=== PATIENT | male | born 1960 | race Caucasian/White ===

== ENCOUNTER 2018-11-08 11:56 | Emergency (ER) | payer MEDICARE, MEDICAID ==
[~2018-11-08] VITALS: Ht 167.6 cm; Wt 61.4 kg
[~2018-11-08 11:56] MED LIST: DULO-31 PO; MARIJUANA; OMEP20CA4 PO
[2018-11-08 12:18] VITALS: BP 93/53
[2018-11-08] MEDS ORDERED: CLIN150C2 PO (13:15)
== END 2018-11-08 13:23 | disposition home or self-care (01) ==
LOC: ER 11:56
DX: K04.7 Periapical abscess without sinus (principal); K02.9 Dental caries, unspecified; E78.00 Pure hypercholesterolemia, unspecified; E11.9 Type 2 diabetes mellitus without complications; G89.29 Other chronic pain; Z90.49 Acquired absence of other specified parts of digestive tract; Z98.890 Other specified postprocedural states; Z79.899 Other long term (current) drug therapy
CPT/HCPCS: 99283

== ENCOUNTER 2019-05-09 20:29 | Inpatient (IN) | payer MEDICARE, MEDICAID ==
[~2019-05-09] VITALS: Ht 167.6 cm; Wt 50.0 kg
[2019-05-09] MEDS ORDERED: CefTRIAXone 2gm/D5W 50ml 50 ML IV ONE (20:55)
[2019-05-09] MEDS ORDERED: normal saline 1000ML IV soln IV ONE (20:55)
[2019-05-09 21:17] LABS: CLARITY,URINE CLOUDY (Clear); COLOR,URINE YELLOW (Yellow); GLUCOSE, URINE NEGATIVE (Neg); KETONES,URINE TRACE mg/dl (Neg); LEUKOCYTE ESTERASE ,URINE NEGATIVE (Neg); NITRITES, URINE NEGATIVE (Neg); OCCULT BLOOD,URINE NEGATIVE (Neg); PROTEIN,URINE TRACE mg/dl (Neg)
[2019-05-09 21:19] LABS: BASOPHILS # (AUTO) 0.1 X10'3 (0-0.2); BASOPHILS % (AUTO) 0.6 % (0-1); EOSINOPHILS # (AUTO) 0.1 X10'3 (0-0.9); EOSINOPHILS % (AUTO) 0.6 % (0-6); HEMATOCRIT 25.6 % (42.0-52.0); HEMOGLOBIN 7.4 g/dl (14.0-17.9); LYMPHOCYTES # (AUTO) 1.8 X10'3 (1.1-4.8); LYMPHOCYTES % (AUTO) 17.5 % (21-51); MEAN CORPUSCULAR HEMOGLOBIN 16.2 PG (27.0-31.0); MEAN CORPUSCULAR HGB CONC 28.8 g/dL (33.0-36.5); MEAN CORPUSCULAR VOLUME 56.2 FL (78-98); MONOCYTES # (AUTO) 0.6 X10'3 (0-0.9); MONOCYTES % (AUTO) 5.6 % (2-12); NEUTROPHILS # (AUTO) 7.9 X10'3 (1.8-7.7); NEUTROPHILS % (AUTO) 75.7 % (42-75); PLATELET COUNT 382 X10'3 (140-440); RED BLOOD COUNT 4.56 X10'6 (4.70-6.10); RED CELL DISTRIBUTION WIDTH 22.6 % (11.5-14.5); WHITE BLOOD COUNT 10.4 X10'3 (4.5-11.0)
[2019-05-09 21:24] LABS: UA COLLECTION TYPE CLN CATCH MIDSTREAM
[2019-05-09 21:25] LABS: BACTERIA,URINE FEW /HPF (Neg); MUCUS STRANDS MANY /LPF (Neg); RBC,URINE NONE SEEN /HPF (0-2); SQUAMOUS EPITHELIAL CELL,UR FEW /LPF (FEW); WBC,URINE NONE SEEN /HPF (0-4)
[2019-05-09 21:26] LABS: AMORPHOUS URATES 1+
[2019-05-09 21:35] LABS: PARTIAL THROMBOPLASTIN TIME 28 SECONDS (22-32)
[2019-05-09 21:39] LABS: ANISOCYTOSIS 3+; HYPOCHROMASIA 2+; MICROCYTOSIS 3+; PLATELET ESTIMATE NORMAL
[2019-05-09 21:40] LABS: ELLIPTOCYTES 1+
[2019-05-09 21:41] LABS: POLYCHROMASIA FEW; TEAR DROP CELLS FEW
[2019-05-09 21:45] LABS: ANION GAP 7 (8-16); BLOOD UREA NITROGEN 13 MG/DL (7-18); BUN/CREATININE RATIO 13.7 (5.4-32.0); CALCIUM 7.8 MG/DL (8.5-10.1); CHLORIDE 105 MMOL/L (99-107); CREATININE 0.95 MG/DL (0.60-1.10); GLUCOSE 90 MG/DL (70-104); POTASSIUM 4.3 MMOL/L (3.5-5.1); SODIUM 138 MMOL/L (135-145); TOTAL CARBON DIOXIDE 25.9 MMOL/L (24-32); eGFR 81 ML/MIN
[2019-05-09 21:46] LABS: ALBUMIN 1.5 G/DL (3.4-5.0); ALBUMIN/GLOBULIN RATIO 0.3 (1.1-1.5); ASPARTATE AMINO TRANSFERASE 13 U/L (10-37); BILIRUBIN,TOTAL 0.3 MG/DL (0.1-1.0); MAGNESIUM 1.5 MG/DL (1.5-2.4); TOTAL PROTEIN 7.2 G/DL (6.4-8.2)
[2019-05-09 21:47] LABS: ALANINE AMINOTRANSFERASE 6 U/L (12-78); ALKALINE PHOSPHATASE 87 IU/L (46-116)
[2019-05-09] MEDS ORDERED: levoFLOXACIN-Levaquin 750MG/D5 150 ML IV STA (22:27)
[2019-05-09] MEDS ORDERED: normal saline 1000ML IV soln IVB ONE (22:30)
[2019-05-09] MEDS ORDERED: NORepinephrine inj. 16 MG in normal saline 500ml IV soln 484 ML IV SCH (23:00)
[2019-05-09] MEDS ORDERED: BUPR1PAT TOP (23:00)
[2019-05-09] MEDS ORDERED: NORepinephrine 8 MG in NS 250ml IV soln IV ONE (23:05)
--- NOTE | 2019-05-09 23:07 | NUR ---
PAGED 2ND TIME FOR DR. ALBERT AT 23:03 AWAITING CALL
--- NOTE | 2019-05-09 23:48 | NUR ---
Port accessed per Dr. Gomez. Fluids infusing with no complications noted, but unable to draw back blood. Dr. Gomez is aware. Dr. Gomez is aware SBP is now > 90, will hold on starting Levophed at this time. Will monitor SBP and initiate and titrate as ordered to maintain SBP > 90.
[2019-05-10] VITALS (11 sets, daily range): BP systolic 79–110; BP diastolic 36–71
--- NOTE | 2019-05-10 00:30 | NUR ---
LAB IN NEED OF A REDRAW FOR PT'S TYPE AND CROSS ORIGINAL SAMPLE TOO LITTLE AMT. CURRENT BP 99/56., HR 71
[2019-05-10] MEDS ORDERED: mag hydrox/Alum hydrox/simeth 30ml oral suspension PO PRN (00:45)
[2019-05-10] MEDS ORDERED: ondansetron/PF 4mg/2ml inj IV PRN (00:45)
[2019-05-10] MEDS ORDERED: HYDROcodone/acetaminophen 10/325mg tab PO PRN (00:45)
[2019-05-10] MEDS ORDERED: HYDROcodone/acetaminophen 5mg/325mg tablet PO PRN (00:45)
[2019-05-10] MEDS ORDERED: magnesium hydroxide 30ml (MOM) UD suspension PO PRN (00:45)
[2019-05-10] MEDS ORDERED: acetaminophen 325mg tablet PO PRN ×2 (00:45)
[2019-05-10] MEDS ORDERED: morphine 2 MG/ML inj. syringe IV PRN (00:45)
[2019-05-10] MEDS ORDERED: albumin (Human) 5% 250ml 250 ML IV ONE (01:30)
[2019-05-10] MEDS: dextrose 5%-1/2 normal saline 1,000 ML IV SCH ×3 (01:45→16:51)
--- NOTE | 2019-05-10 02:28 | NUR ---
dr donald at bedside for admission. he reports pt to be npo now and have scope in tomorrow
--- NOTE | 2019-05-10 02:36 | NUR ---
PTS MOTHER, SOPHIE CALLING AND REPORTS SHE AND PT'S BROTHER WERE WAITING IN THE LOBBY FOR A FEW HRS AND WERE NOT ABLE TO COME BACK SO THEY LEFT. THEY WILL RETURN IN THE AM TO VISIT.
--- NOTE | 2019-05-10 06:05 | NUR ---
Patient in room [facility]. I have received report from SARAH Smith and had the opportunity to ask questions and assume patient care.
[2019-05-10 06:14] LABS: HEMOGLOBIN A1C 5.1 % (4.5-6.2)
--- NOTE | 2019-05-10 06:55 | NUR ---
Problems reprioritized. Patient report given, questions answered & plan of care reviewed with Linda RN.
--- NOTE | 2019-05-10 07:00 | NUR ---
Decreased BP. Asymptomatic. MD aware. No orders received.
[2019-05-10] MEDS ORDERED: enoxaparin 40mg/0.4ml syringe SUBCUT SCH (08:00)
[2019-05-10] MEDS: levoFLOXACIN-Levaquin 750MG/D5 150 ML IV SCH (10:09)
[2019-05-10 12:33] LABS: HEMATOCRIT 22.7 % (42.0-52.0); MEAN CORPUSCULAR HEMOGLOBIN 17.4 PG (27.0-31.0); MEAN CORPUSCULAR HGB CONC 29.5 g/dL (33.0-36.5); MEAN CORPUSCULAR VOLUME 58.9 FL (78-98); PLATELET COUNT 306 X10'3 (140-440); RED BLOOD COUNT 3.86 X10'6 (4.70-6.10); RED CELL DISTRIBUTION WIDTH 25.5 % (11.5-14.5); WHITE BLOOD COUNT 7.1 X10'3 (4.5-11.0)
[2019-05-10 12:36] LABS: HEMOGLOBIN 6.7 g/dl (14.0-17.9)
--- NOTE | 2019-05-10 14:54 | NUR ---
Malnutrition consult. Pt presents to ED with difficulty breathing, mild muscle weakness, low BMI of 18, currently NPO for OR. No edema. Current documented weight is patient stated at 50 kg. Last documented weight on standing scale was 61.36 kg seven months ago in november. Per MD note patient presented with c/o of progressive dysphagia with odynophagia, not able to keep down solids or fluids. Reports weight loss of 25 lbs in 2-3 months. H/o esophageal cancer with EGD done one month ago. Visited patient at bedside, he is visibly malnourished with severe fat and muscle loss. Pt reports he used to do well with popsicles, milk, water, ice cream, and some fried foods but has been declining in the ability to swallow and hold down foods for the past three weeks to the point where he cannot swallow anything well. BSS is pending. Patient expressed to CHLOE that he does not want temporary or permanent tube feeding for nutrition, d/w RN and MD. Will continue to follow. Recommend: 1. NPO per Addendum: 05/10/19 at [address] Amended: Links added.
[2019-05-10 18:24] LABS: HEMATOCRIT 26.4 % (42.0-52.0); HEMOGLOBIN 8.2 g/dl (14.0-17.9); MEAN CORPUSCULAR HEMOGLOBIN 19.5 PG (27.0-31.0); MEAN CORPUSCULAR HGB CONC 30.9 g/dL (33.0-36.5); MEAN CORPUSCULAR VOLUME 63.1 FL (78-98); PLATELET COUNT 300 X10'3 (140-440); RED BLOOD COUNT 4.18 X10'6 (4.70-6.10); RED CELL DISTRIBUTION WIDTH 30.3 % (11.5-14.5); WHITE BLOOD COUNT 7.2 X10'3 (4.5-11.0)
--- NOTE | 2019-05-10 18:35 | NUR ---
Problems reprioritized. Patient report given, questions answered & plan of care reviewed with Nieves Pickett RN.
--- NOTE | 2019-05-10 18:40 | NUR ---
Patient in room [facility]. I have received report from EVANGELINA SMITH and had the opportunity to ask questions and assume patient care.
[2019-05-10] MEDS: lactobacillus rhamnosus 10,000 MMU CELLS/CAPSULE PO SCH (20:00)
[2019-05-11] VITALS: BP 116/60
[2019-05-11] MEDS: dextrose 5%-1/2 normal saline 1,000 ML IV SCH (01:56)
[2019-05-11 06:09] LABS: ALBUMIN 1.3 G/DL (3.4-5.0); ANION GAP 9 (8-16); BLOOD UREA NITROGEN 5 MG/DL (7-18); BUN/CREATININE RATIO 6.5 (5.4-32.0); CHLORIDE 106 MMOL/L (99-107); CREATININE 0.77 MG/DL (0.60-1.10); GLUCOSE 81 MG/DL (70-104); SODIUM 138 MMOL/L (135-145); TOTAL CARBON DIOXIDE 22.8 MMOL/L (24-32); eGFR > 90 ML/MIN
[2019-05-11 06:16] LABS: BASOPHILS % (AUTO) 0.7 % (0-1); EOSINOPHILS # (AUTO) 0.1 X10'3 (0-0.9); EOSINOPHILS % (AUTO) 1.5 % (0-6); HEMATOCRIT 26.7 % (42.0-52.0); HEMOGLOBIN 8.2 g/dl (14.0-17.9); LYMPHOCYTES # (AUTO) 1.8 X10'3 (1.1-4.8); LYMPHOCYTES % (AUTO) 25.3 % (21-51); MEAN CORPUSCULAR HEMOGLOBIN 19.3 PG (27.0-31.0); MEAN CORPUSCULAR HGB CONC 30.8 g/dL (33.0-36.5); MEAN CORPUSCULAR VOLUME 62.8 FL (78-98); MEAN PLATELET VOLUME 8.3 FL (7.4-10.4); MONOCYTES # (AUTO) 0.5 X10'3 (0-0.9); MONOCYTES % (AUTO) 6.9 % (2-12); NEUTROPHILS # (AUTO) 4.6 X10'3 (1.8-7.7); NEUTROPHILS % (AUTO) 65.6 % (42-75); PLATELET COUNT 305 X10'3 (140-440); RED BLOOD COUNT 4.25 X10'6 (4.70-6.10); RED CELL DISTRIBUTION WIDTH 30.4 % (11.5-14.5); WHITE BLOOD COUNT 7.1 X10'3 (4.5-11.0)
[2019-05-11 06:21] LABS: POTASSIUM 2.7 MMOL/L (3.5-5.1)
--- NOTE | 2019-05-11 06:25 | NUR ---
Problems reprioritized. Patient report given, questions answered & plan of care reviewed with SIOMARA SMITH.
--- NOTE | 2019-05-11 06:26 | NUR ---
Patient in room [facility]. I have received report from Masha SMITH and had the opportunity to ask questions and assume patient care. Addendum: 05/11/19 at 1524 by Ela Gil RN patient was seen by Dr Welch has been made comfort care. Wanting to try to eat pureed diet ordered for patient. slowly trying yoghurt at this time. will monitor.
[2019-05-11] MEDS ORDERED: magnesium 4gm in 100ml NS 100 ML IV PRN (06:50)
[2019-05-11] MEDS ORDERED: potassium CL 10mEq/100ml bag 100 ML IV PRN (06:50)
[2019-05-11] MEDS ORDERED: magnesium 2GM in 50ml NS 50 ML IV PRN (06:50)
[2019-05-11 07:00] VITALS: BP 100/64
[2019-05-11 07:06] LABS: MAGNESIUM 1.2 MG/DL (1.5-2.4)
[2019-05-11] MEDS: levoFLOXACIN-Levaquin 750MG/D5 150 ML IV SCH (07:25)
[2019-05-11] MEDS: lactobacillus rhamnosus 10,000 MMU CELLS/CAPSULE PO SCH ×2 (07:38→20:00)
[2019-05-11 11:00] VITALS: BP 102/67
[2019-05-11] MEDS ORDERED: LORazepam 0.5 MG tablet PO PRN (14:00)
[2019-05-11] MEDS ORDERED: morphine oral 20mg/ml (conc. morphine) 1ml oral syringe PO PRN (14:00)
[2019-05-11] MEDS: morphine 10mg/0.5ml (conc. morphine) oral syringe PO PRN ×4 (15:07→20:59)
--- NOTE | 2019-05-11 15:24 | NUR ---
Pt has been made DNR w/ comfort care. LB 05/08. Advanced to pureed diet per MD; thin liquids per RN and requests chocolate shake. Will send lunch and dinner; dietary notified. Pt has large mass and trouble swallowing w/ esophageal CA. RD d/w RN and dietary to send up whatever pt can tolerate PO including popsicles, ice cream, etc. Will continue to follow per protocol. Recommend: 1. pureed/thin per MD 2. chocolate shake BIDLD 3. routine bowel care Addendum: 05/11/19 at [address] Amended: Links added.
[2019-05-11] MEDS: morphine 2 MG/ML inj. syringe IV PRN (16:34)
[2019-05-11] MEDS: hyoscyamine 0.125mg TAB.SUBL SL PRN (16:38)
--- NOTE | 2019-05-11 16:42 | NUR ---
patient coughing up copious amounta of phkegm. given roxanol 1500hrs, but staff concerned that patient is coughing it up before absorption. patient stated he felt some effect. switched to morphine IV,, and levsin SL for secretions, will continue to monitor
--- NOTE | 2019-05-11 18:03 | NUR ---
Problems reprioritized. Patient report given, questions answered & plan of care reviewed with Everette SMITH.
--- NOTE | 2019-05-11 18:15 | NUR ---
Patient in room [facility]. I have received report from Ela SMITH and had the opportunity to ask questions and assume patient care.
[2019-05-11 20:00] VITALS: BP 84/50
[2019-05-12] MEDS: morphine 2 MG/ML inj. syringe IV PRN (00:19)
--- NOTE | 2019-05-12 01:14 | NUR ---
Received critical lab value: + blood culture for gram negative rods in aerobic bottle. Patient is DNR with comfort care and refuses further treatment outside of pain management.
[2019-05-12] MEDS: morphine 10mg/0.5ml (conc. morphine) oral syringe PO PRN (06:37)
[2019-05-12] MEDS: lactobacillus rhamnosus 10,000 MMU CELLS/CAPSULE PO SCH ×2 (06:39→20:52)
--- NOTE | 2019-05-12 06:40 | NUR ---
Problems reprioritized. Patient report given, questions answered & plan of care reviewed with Kalyani SMITH.
--- NOTE | 2019-05-12 07:08 | NUR ---
Patient in room [facility]. I have received report from Everette SMITH and had the opportunity to ask questions and assume patient care.
[2019-05-12 07:32] VITALS: BP 85/50
[2019-05-12 11:00] VITALS: BP 97/63
[2019-05-12] MEDS ORDERED: magnesium hydroxide 30ml (MOM) UD suspension PO PRN (18:40)
--- NOTE | 2019-05-12 18:44 | NUR ---
Problems reprioritized. Patient report given, questions answered & plan of care reviewed with Pat RN.
[2019-05-12] MEDS: dronabinol 2.5mg capsule PO PRN (19:30)
[2019-05-12] MEDS: hyoscyamine 0.125mg TAB.SUBL SL PRN (21:24)
--- NOTE | 2019-05-13 06:35 | NUR ---
Patient in room [facility]. I have received report from Pat RN and had the opportunity to ask questions and assume patient care.
[2019-05-13 07:00] VITALS: BP 74/38
[2019-05-13] MEDS: lactobacillus rhamnosus 10,000 MMU CELLS/CAPSULE PO SCH ×2 (09:52→20:00)
[2019-05-13] MEDS: ondansetron 4mg rapidly disintigrating tab PO PRN ×2 (09:52→15:58)
[2019-05-13] MEDS: hyoscyamine 0.125mg TAB.SUBL SL PRN ×3 (09:52→23:19)
[2019-05-13] MEDS: dronabinol 2.5mg capsule PO PRN ×3 (10:02→23:14)
[2019-05-13] MEDS: benzonatate 100mg capsule PO PRN ×2 (10:09→21:28)
[2019-05-13 12:00] VITALS: BP 76/44
--- NOTE | 2019-05-13 14:45 | NUR ---
Received TC from RN who reports pt isn't drinking the chocolate shake as he does not like it and request RD to speak with pt regarding food preferences. Pt seen at bedside states he is pretty much open to any food other than the chocolate shakes. D/w dietary to send fruit smoothie TID, pudding TID, popsicles TID, and ice cream BIDLD. Pt s/p BSS 8/ with ST recs pureed food and thin liquids but must take small bites and sips; diet was advanced to pureed food with documented 25% PO intake not meeting nutrient needs. Pt requesting diet liberalization, states he can swallow but that he just has to chew well and slow. D/w who agreed to liberalize diet as pt is on comfort care. Patient's diet has now been advanced to mechanical soft chop all. [facility] 05/08. Pt denies feeling constipated however agrees to prune juice with dinner tonight, d/w dietary. Will continue to follow per LOS protocol. Recommend: 1. Continue [facility] soft diet chop all with further diet liberalization per MD 2. Fruit smoothie TID, pudding TID, popsicles TID, and ice cream BIDLD 3. Routine bowel care Addendum: 05/13/19 at [address] Amended: Links added.
[2019-05-13] MEDS: morphine 10mg/0.5ml (conc. morphine) oral syringe PO PRN ×3 (18:56→22:59)
[2019-05-13 19:00] VITALS: BP 82/46
[2019-05-14] MEDS: morphine 10mg/0.5ml (conc. morphine) oral syringe PO PRN ×2 (05:06→14:47)
--- NOTE | 2019-05-14 06:37 | NUR ---
Problems reprioritized. Patient report given, questions answered & plan of care reviewed with SARAH Auguste.
[2019-05-14 07:00] VITALS: BP 88/48
--- NOTE | 2019-05-14 07:26 | NUR ---
Patient in room [facility]. I have received report from Anel Steinberg RN and had the opportunity to ask questions and assume patient care.
[2019-05-14] MEDS: lactobacillus rhamnosus 10,000 MMU CELLS/CAPSULE PO SCH ×2 (09:31→19:02)
[2019-05-14] MEDS: benzonatate 100mg capsule PO PRN ×2 (09:32→19:03)
[2019-05-14] MEDS: ondansetron 4mg rapidly disintigrating tab PO PRN (09:32)
[2019-05-14] MEDS: hyoscyamine 0.125mg TAB.SUBL SL PRN ×2 (09:32→19:10)
[2019-05-14] MEDS: dronabinol 2.5mg capsule PO PRN ×2 (09:58→19:04)
[2019-05-14 11:00] VITALS: BP 86/51
--- NOTE | 2019-05-14 18:37 | NUR ---
Problems reprioritized. Patient report given, questions answered & plan of care reviewed with Jeannine SMITH.
[2019-05-14 20:00] VITALS: BP 89/50
--- NOTE | 2019-05-15 06:20 | NUR ---
Patient in room [facility]. I have received report from SARAH Paez and had the opportunity to ask questions and assume patient care.
[2019-05-15 07:00] VITALS: BP 93/44
[2019-05-15] MEDS: lactobacillus rhamnosus 10,000 MMU CELLS/CAPSULE PO SCH (07:58)
[2019-05-15] MEDS: morphine 10mg/0.5ml (conc. morphine) oral syringe PO PRN (12:27)
[2019-05-15] MEDS: benzonatate 100mg capsule PO PRN (12:27)
[2019-05-15] MEDS: hyoscyamine 0.125mg TAB.SUBL SL PRN (12:27)
[2019-05-15] MEDS ORDERED: ATI0.5T PO (13:06)
[2019-05-15] MEDS ORDERED: BENZ-16 PO (13:06)
[2019-05-15] MEDS ORDERED: MORP100S12 PO (13:06)
[2019-05-15] MEDS ORDERED: [UNRECOGNIZED DRUG - CODE] PO (13:06)
[2019-05-15] MEDS ORDERED: ONDA4TAB12 PO (13:06)
[2019-05-15] MEDS ORDERED: HYOS0.1277 SL (13:06)
--- NOTE | 2019-05-15 13:21 | NUR ---
Patient offered MOM or something to help him have a BM. Patient is refusing stating, "I am not uncomfortable and I don't want to take anything to make me poop".
[2019-05-15] MEDS: dronabinol 2.5mg capsule PO PRN (13:28)
[2019-05-15] MEDS ORDERED: heparin sodium, porcine/PF 100unit/ml 5ML syringe IV ONE (13:45)
--- NOTE | 2019-05-15 14:15 | NUR ---
Patient discharged to [facility] and taken from unit via wheelchair with x1 staff from [employer]. Patient alert and in no apparent distress at time of discharge. Patient took all belongings with him. Patient Port was flushed by SARAH Jeffries and placement could not be confirmed so she did not flush with heparin. Patient report called to John to Marie.
== END 2019-05-15 14:18 | DRG 193 ==
LOC: ER 20:29 → SUR 3N 05-10 03:15
PROVIDERS: ADMIT Internal Medicine; ATTEND Family Medicine
PROC: 30233N1 Transfusion of Nonautologous Red Blood Cells into Peripheral Vein, Percutaneous Approach (ICD-10-PCS; principal; 2019-05-10)
DX: J18.9 Pneumonia, unspecified organism (principal); E43 Unspecified severe protein-calorie malnutrition; R65.21 Severe sepsis with septic shock; C15.9 Malignant neoplasm of esophagus, unspecified; Z68.1 Body mass index [BMI] 19.9 or less, adult; E11.9 Type 2 diabetes mellitus without complications; E78.00 Pure hypercholesterolemia, unspecified; F41.9 Anxiety disorder, unspecified; Z51.5 Encounter for palliative care; G89.29 Other chronic pain; Z60.2 Problems related to living alone; I95.9 Hypotension, unspecified; F32.9 Major depressive disorder, single episode, unspecified; Z82.49 Family history of ischemic heart disease and other diseases of the circulatory system; Z90.49 Acquired absence of other specified parts of digestive tract; Z87.891 Personal history of nicotine dependence; Z79.899 Other long term (current) drug therapy
CPT/HCPCS: 36415; 71045; 71250; 80048; 80053; 81001; 83036; 83605; 83735; 83880; 84145; 85025; 85027; 85610; 85730; 86885; 86900; 86901; 86920; 87040; 87077; 87081; 92508; 92616; 93005; 96365; 96367; 99285; G0378; J0696; J1642; J1650; J1956; J2270; J2405; J3480; J7040; P9016; P9045; Q0167